=== PATIENT | female | born 1980 | race Caucasian/White ===

== ENCOUNTER 2017-12-16 00:23 | Inpatient (IN) | payer OTHER ==
[~2017-12-16] VITALS: Ht 160 cm; Wt 60.5 kg
[2017-12-16 01:03] VITALS: Ht 160 cm; Wt 60.5 kg
[2017-12-16 01:54] LABS: BASOPHIL % 0.6 % (0-2); PLATELET COUNT 289 x10^3mcL (130-400); RED CELL DISTRIBUTION WIDTH 12.3 % (11.5-14.5)
[2017-12-16 02:06] LABS: CALCIUM 9.2 mg/dL (8.5-10.1); CARBON DIOXIDE 26.7 mmol/L (21-32); CREATININE SERUM 1.1 mg/dL (0.6-1.0); POTASSIUM SERUM 3.6 mmol/L (3.5-5.1)
[2017-12-16 02:10] LABS: ALBUMIN 3.9 g/dL (3.4-5.0); BILIRUBIN TOTAL 0.22 mg/dL (0.20-1.00); TOTAL PROTEIN, SERUM 7.6 g/dL (6.4-8.2)
[2017-12-16] MEDS ORDERED: PRILOSEC OTC20 M1 PO (03:01)
[2017-12-16] MEDS ORDERED: XALATAN2.5 ML (03:01)
[2017-12-16] MEDS ORDERED: PATANOL5 ML (03:01)
[2017-12-16 04:02] LABS: microscopic required? YES; urine erythrocyte NEGATIVE (NEGATIVE)
[2017-12-16 04:29] LABS: T3 TOTAL 1.2 ng/mL
[2017-12-16 04:31] LABS: PHOSPHOROUS 3.4 mg/dL (2.5-4.9)
[2017-12-16 04:33] LABS: CHOLESTEROL/HDL RATIO 2.5
[2017-12-16 04:39] LABS: FREE T4 0.98 ng/dL (0.76-1.46); T4(THYROXINE) 8.6 ug/dL (4.7-13.3)
[2017-12-16 06:30] VITALS: BP 110/71
[2017-12-16 09:29] VITALS: BP 105/73
[2017-12-16 09:54] VITALS: BP 105/73
[2017-12-16 17:08] VITALS: BP 101/69
[2017-12-16 21:32] VITALS: BP 104/69
[2017-12-17 05:39] VITALS: BP 108/73
[2017-12-17 05:57] LABS: BASOPHIL % 0.3 % (0-2); PLATELET COUNT 200 x10^3mcL (130-400)
[2017-12-17 06:27] LABS: CALCIUM 8.2 mg/dL (8.5-10.1); CARBON DIOXIDE 24.1 mmol/L (21-32); CREATININE SERUM 1.1 mg/dL (0.6-1.0); MAGNESIUM 1.8 mg/dL (1.8-2.4); POTASSIUM SERUM 3.4 mmol/L (3.5-5.1)
[2017-12-17 09:43] VITALS: BP 117/83
[2017-12-17] MEDS ORDERED: LEVAQUIN500 M1 PO (11:05)
[2017-12-17 11:25] VITALS: BP 117/83
== END 2017-12-17 13:08 | disposition home or self-care (01) | DRG 694 ==
LOC: ED 00:23 → MU 03:24
PROVIDERS: Emergency Medicine; Family Medicine
DX: N13.2 Hydronephrosis with renal and ureteral calculous obstruction (principal); N17.0 Acute kidney failure with tubular necrosis; K21.9 Gastro-esophageal reflux disease without esophagitis; R73.03 Prediabetes; R74.0 Nonspecific elevation of levels of transaminase and lactic acid dehydrogenase [LDH]; Z68.23 Body mass index [BMI] 23.0-23.9, adult
CPT/HCPCS: 83880; 84439; J1885; J1956; J2270; J3010; J3490; J7030; Q0092; Q9967